=== PATIENT | female | born 1985 | race Caucasian/White ===

== ENCOUNTER → 2017-02-23 | Outpatient (CLI) | payer SELFPAY ==
--- NOTE | 2017-02-24 09:30 | RAD ---
Examination: Obstetric ultrasound greater than 14 weeks History: History of size and date discrepancy Comparison: None available Findings: Single living intrauterine identified with heart rate of 150 bpm. movement is seen. 3 vessel cord is identified. Cord insertion, fluid in the bladder, stomach, kidneys, spine, brain are visualized. position is available. The cervical length measures 4.2 cm. Placenta is in the posterior wall. Amniotic fluid is normal. Biparietal diameter measures 4.6 cm corresponding to 20 weeks and 0 days +/- 12 days. Head circumference measures 17.6 cm corresponding to 20 weeks and 1 day +/- 10 days. Abdominal circumference measures 15.02 cm corresponding to 20 weeks and 2 days +/- 14 days. Femur length measures 3.22 cm corresponding to 20 weeks and 0 days +/- 13 days. Cephalic index 82.0. Head circumference to abdominal circumference ratio 1.17. Femur length to biparietal diameter 69.8. Femur length to head circumference 18.3. Femur length abdominal circumference 21.4. LMP 10/10/2016. Clinical age 19 weeks and 3 days with estimated date of delivery 07/17/2017 by LMP. Ultrasound age is 20 weeks and 1 day with estimated date of delivery 07/12/2017. Estimated weight 335 g +/- 50 g. gender : male Impression: Single living intrauterine with heart rate 150 bpm. Gestational age by this ultrasound is 20 weeks and 1 day with estimated date of delivery by this ultrasound 07/12/2017.
== END | disposition home or self-care (01) ==
LOC: US 15:29
PROVIDERS: ATTEND Obstetrics & Gynecology
DX: O09.92 Supervision of high risk pregnancy, unspecified, second trimester (principal); O26.842 Uterine size-date discrepancy, second trimester; Z3A.20 20 weeks gestation of pregnancy
CPT/HCPCS: 76805

== ENCOUNTER → 2017-05-31 | Outpatient (CLI) | payer OTHER ==
--- NOTE | 2017-05-31 17:03 | RAD ---
Obstetrical ultrasound-Limited, 05/31/2017: History: Fibroid uterus There is a single intrauterine fetus in a cephalic orientation. The biparietal diameter measures 8.3 cm compatible with a gestational age of 33-34 weeks. This corresponds well to the other measurements and yields an average gestational age of 34 weeks and 0 days and a sonographic EDC of 07/12/2017. This is the same EDC established on the previous ultrasound exam of 02/23/2017. Normal activity and heart motion were seen. The heart rate is 132 bpm. The weight was estimated at 5 pounds and 1 ounce +/- 12 ounces. The head to abdominal circumference ratio is within normal limits. A full survey was not performed at this time. A normal amount of amniotic fluid is evident with the PATRICIA calculated at 14.0. The placenta is located posteriorly, with no evidence of a placenta previa. Uterine fibroids were not delineated on this limited exam. IMPRESSION: Single viable intrauterine fetus of 34 weeks gestational age which has demonstrated normal interval growth since 02/23/2017.
== END | disposition home or self-care (01) ==
LOC: US 15:04
PROVIDERS: ATTEND Obstetrics & Gynecology
DX: O34.13 Maternal care for benign tumor of corpus uteri, third trimester (principal); Z3A.34 34 weeks gestation of pregnancy; D25.9 Leiomyoma of uterus, unspecified
CPT/HCPCS: 76805